=== PATIENT | female | born 1995 | race Asian ===

== ENCOUNTER 2019-06-04 03:09 | Emergency (ER) | payer OTHER ==
[~2019-06-04] VITALS: Ht 180.3 cm; Wt 70.3 kg
[2019-06-04] MEDS ORDERED: KETO10TA2 PO (08:49)
[2019-06-04] MEDS ORDERED: SILVADENE20 GM TOP (08:49)
[2019-06-04] MEDS ORDERED: DUI500 PO (08:49)
== END 2019-06-04 09:15 | disposition home or self-care (01) ==
LOC: ER 03:09
DX: S40.812A Abrasion of left upper arm, initial encounter (principal); S80.212A Abrasion, left knee, initial encounter; S90.812A Abrasion, left foot, initial encounter; S60.512A Abrasion of left hand, initial encounter; S00.81XA Abrasion of other part of head, initial encounter; V29.88XA Motorcycle rider (driver) (passenger) injured in other specified transport accidents, initial encounter; Y93.89 Activity, other specified; Y92.89 Other specified places as the place of occurrence of the external cause; Y99.8 Other external cause status

== ENCOUNTER 2020-09-13 05:50 | Emergency (ER) | payer BC ==
[~2020-09-13] VITALS: Ht 180.3 cm; Wt 70.3 kg
[~2020-09-13 05:50] MED LIST: DUI500 PO; KETO10TA2 PO; SILVADENE20 GM TOP
[2020-09-13] MEDS ORDERED: MEDROLPACK PO (09:15)
[2020-09-13] MEDS ORDERED: BETAMETHASONE D15 G3 TOP (09:15)
[2020-09-13] MEDS ORDERED: ALL DAY ALLERGY10 M3 PO (09:15)
== END 2020-09-13 09:28 | disposition home or self-care (01) ==
LOC: ER 05:50
DX: L50.8 Other urticaria (principal); R21 Rash and other nonspecific skin eruption